=== PATIENT | female | born 1935 | race Caucasian/White ===

== ENCOUNTER 2018-04-14 16:02 | Emergency (ER) | payer SELFPAY ==
[~2018-04-14] VITALS: Ht 170.2 cm; Wt 59.0 kg
[2018-04-14 17:51] VITALS: BP 123/55
== END 2018-04-14 18:21 | disposition home or self-care (01) ==
LOC: ER 16:23
DX: S00.03XA Contusion of scalp, initial encounter (principal); W01.198A Fall on same level from slipping, tripping and stumbling with subsequent striking against other object, initial encounter; Y93.89 Activity, other specified; Y99.8 Other external cause status; Y92.098 Other place in other non-institutional residence as the place of occurrence of the external cause
CPT/HCPCS: 70450

== ENCOUNTER 2018-04-27 06:30 | Inpatient (IN) | payer OTHER ==
[~2018-04-27] VITALS: Ht 170.2 cm; Wt 52.3 kg
[2018-04-27 07:32] LABS: Mean Corpuscular Hemoglobin 28.5 pg (28.0-32.0); Mean Corpuscular Hgb Conc. 30.9 g/dL (32.0-36.0); Mean Corpuscular Volume 92.1 fL (80.0-100.0); Platelet Count (auto) 238 10^3/uL (140-450); Red Blood Cells 3.15 10^6/uL (4.0-5.20); Red Cell Distribution Width 19.3 % (11.8-14.3)
[2018-04-27 07:38] LABS: Albumin 3.2 g/dL (3.4-5.0); BUN/Creatinine Ratio 15.2; Calcium 8.5 mg/dL (8.5-10.1); Magnesium 2.2 mg/dL (1.6-2.6)
[2018-04-27 07:40] LABS: Basophils % (manual) 0 (0.0-2.0); Blast Cells 0; Eosinophils % (manual) 0 (0-7); Metamyelocytes % 0; Myelocytes % 0; Promyelocytes % 0
[2018-04-27 07:43] LABS: Bilirubin, Total 0.5 mg/dL (0.2-1.0); Total Protein 6.3 g/dL (6.4-8.2)
[2018-04-27] MEDS ORDERED: SODIUM CHLORIDE 0.9% 1,000 ML IV ONE (07:43)
[2018-04-27] MEDS ORDERED: cefTRIAXone 1GM/10ml IVPUSH 10 ML IV ONE (07:45)
[2018-04-27 08:19] LABS: Urine Bacteria MANY /hpf (None Seen); Urine Blood Negative /uL (Negative); Urine Specific Gravity 1.018 (1.001-1.035); Urine WBC 22 /hpf (0 - 5)
[2018-04-27 08:56] LABS: White Blood Cell 66.1 10^3/uL (4.4-10.8)
[2018-04-27 09:33] LABS: Band Neutrophils % (manual) 1
[2018-04-27 09:35] LABS: Monocytes % (manual) 1 (0-12)
[2018-04-27 09:36] LABS: Lymphocytes % (manual) 80 (10.0-50.0); Reactive Lymphocytes 12
[2018-04-27] MEDS ORDERED: LORazepam 0.5 MG TAB PO PRN (10:30)
[2018-04-27] MEDS ORDERED: LEVOTHYROXINE SODIUM 25 MCG TAB PO ONE (10:30)
[2018-04-27] MEDS ORDERED: PANTOPRAZOLE 40 MG TAB PO ONE (10:30)
[2018-04-27] MEDS ORDERED: ALLOPURINOL 100 MG TAB PO ONE (10:30)
[2018-04-27] MEDS ORDERED: HYDROcodone-ACET 5/325MG TAB PO PRN (10:45)
[2018-04-27] MEDS ORDERED: DOCUSATE SOD 100 MG CAP PO PRN (10:45)
[2018-04-27] MEDS ORDERED: MORPHINE SULF INJ 2 MG/ML SYRINGE 1ML IV PRN ×2 (10:45)
[2018-04-27] MEDS ORDERED: NITROGLYCERIN 0.4 MG SL TAB SL PRN (10:45)
[2018-04-27] MEDS ORDERED: ONDANSETRON HCL 4 MG/2 ML VIAL IV PRN (10:45)
[2018-04-27] MEDS ORDERED: ACETAMINOPHEN 325 MG TAB PO PRN (10:45)
[2018-04-27] MEDS: Ensure Enlive Strawberry 8oz Bottle PO SCH ×2 (13:12→18:00)
[2018-04-27] MEDS: SODIUM CHLOR 0.9% PF (SALINE LOCK) 10ML VIAL/SYR IV SCH (14:01)
[2018-04-27 15:30] VITALS: BP 137/68
[2018-04-27] MEDS ORDERED: ALLO100T PO (17:47)
[2018-04-27] MEDS ORDERED: CALC1WAF PO (17:49)
[2018-04-27] MEDS ORDERED: PANT40TA2 PO (17:51)
[2018-04-27] MEDS ORDERED: LEVO25TA6 PO (17:52)
[2018-04-27] MEDS ORDERED: RIVA13.3 TD (17:53)
[2018-04-27] MEDS ORDERED: MEMA10TA PO (17:54)
[2018-04-27] MEDS ORDERED: LORA-654 PO (17:56)
[2018-04-27] MEDS ORDERED: HYDR-4683 PO (17:56)
[2018-04-27 22:00] VITALS: BP 136/88
[2018-04-27] MEDS ORDERED: FAMOTIDINE 20 MG TAB PO SCH (22:00)
[2018-04-27] MEDS: CALCIUM CARB 500 MG CHEW TAB PO SCH (22:00)
[2018-04-27] MEDS: MEMANTINE HCL 5 MG TAB PO SCH (22:00)
[2018-04-28 05:56] VITALS: BP 159/68
[2018-04-28 06:03] LABS: Hematocrit 28.6 % (36.0-46.0); Hemoglobin 9.1 g/dL (12.2-16.2); Mean Corpuscular Hemoglobin 29.4 pg (28.0-32.0); Mean Corpuscular Hgb Conc. 31.9 g/dL (32.0-36.0); Mean Corpuscular Volume 92.4 fL (80.0-100.0); Platelet Count (auto) 231 10^3/uL (140-450); Red Cell Distribution Width 19.2 % (11.8-14.3)
[2018-04-28] MEDS: SODIUM CHLOR 0.9% PF (SALINE LOCK) 10ML VIAL/SYR IV SCH ×3 (06:05→14:08)
[2018-04-28 06:16] LABS: White Blood Cell 59.9 10^3/uL (4.4-10.8)
[2018-04-28 06:18] LABS: Band Neutrophils % (manual) 0; Basophils % (manual) 0 (0.0-2.0); Blast Cells 0; Metamyelocytes % 0; Myelocytes % 0; Promyelocytes % 0
[2018-04-28 06:24] LABS: Albumin 3.3 g/dL (3.4-5.0); BUN/Creatinine Ratio 12.2; Bilirubin, Total 0.6 mg/dL (0.2-1.0); Calcium 8.5 mg/dL (8.5-10.1); Potassium 3.5 mmol/L (3.5-5.1); Total Protein 6.4 g/dL (6.4-8.2)
[2018-04-28 06:56] LABS: Eosinophils % (manual) 1 (0-7); Lymphocytes % (manual) 80 (10.0-50.0); Monocytes % (manual) 2 (0-12); Reactive Lymphocytes 8
[2018-04-28] MEDS ORDERED: LEVOTHYROXINE SODIUM 25 MCG TAB PO SCH (07:00)
[2018-04-28] MEDS: Ensure Enlive Strawberry 8oz Bottle PO SCH ×2 (08:00→12:00)
[2018-04-28 09:00] VITALS: BP 130/80
[2018-04-28] MEDS ORDERED: cefTRIAXone 1GM/10ml IVPUSH 10 ML IV SCH (09:00)
[2018-04-28] MEDS ORDERED: ALLOPURINOL 100 MG TAB PO SCH (10:00)
[2018-04-28] MEDS ORDERED: RIVASTIGMINE 9.5 MG/24 HR TOP SCH (10:00)
[2018-04-28] MEDS ORDERED: RIVASTIGMINE 4.6 MG/24 HR TOP SCH (10:00)
[2018-04-28] MEDS ORDERED: PANTOPRAZOLE 40 MG TAB PO SCH (10:00)
[2018-04-28] MEDS ORDERED: MULTIPLE VITAMIN TAB PO SCH (10:00)
[2018-04-28 10:56] LABS: Free T3 2.41 pg/mL (2.3-4.2); Free T4 (Free Thyroxine) 1.14 ng/dL (0.89-1.76)
[2018-04-28] MEDS: MEMANTINE HCL 5 MG TAB PO SCH (10:57)
[2018-04-28] MEDS: CALCIUM CARB 500 MG CHEW TAB PO SCH (10:57)
[2018-04-28] MEDS ORDERED: LEVO250T45 PO (11:39)
[2018-04-28] MEDS ORDERED: LEVOFLOXACIN 500 MG TAB PO ONE (11:45)
[2018-04-28 13:00] VITALS: BP 138/84
== END 2018-04-28 17:00 | disposition hospice, home (50) | DRG 871 ==
LOC: EDBD 06:30 → ER 06:30 → TELE 06:31 → TELE-WESTW 15:57
PROVIDERS: ADMIT Internal Medicine; ATTEND Internal Medicine
DX: A41.9 Sepsis, unspecified organism (principal); G92 Toxic encephalopathy; N39.0 Urinary tract infection, site not specified; E87.0 Hyperosmolality and hypernatremia; E44.0 Moderate protein-calorie malnutrition; C91.10 Chronic lymphocytic leukemia of B-cell type not having achieved remission; Z68.1 Body mass index [BMI] 19.9 or less, adult; W18.30XA Fall on same level, unspecified, initial encounter; K21.9 Gastro-esophageal reflux disease without esophagitis; F03.90 Unspecified dementia, unspecified severity, without behavioral disturbance, psychotic disturbance, mood disturbance, and anxiety; S09.90XA Unspecified injury of head, initial encounter; N18.3 Chronic kidney disease, stage 3 (moderate); E03.9 Hypothyroidism, unspecified; I70.90 Unspecified atherosclerosis; M10.9 Gout, unspecified; Z51.5 Encounter for palliative care; Z74.01 Bed confinement status; Z99.3 Dependence on wheelchair; Y93.89 Activity, other specified; Y92.89 Other specified places as the place of occurrence of the external cause; Y99.8 Other external cause status
CPT/HCPCS: 36415; 70450; 71045; 80053; 81001; 82550; 83605; 83735; 84439; 84443; 84481; 84484; 85007; 85027; 85060; 87040; 87081; 87086; 87088; 87186; 94761; 96361; 96374; J0696